=== PATIENT | female | born 1980 | race Caucasian/White ===

== ENCOUNTER 2020-03-08 12:36 | Outpatient (CLI) | payer OTHER, SELFPAY ==
--- NOTE | ~2020-03-08 | MMUS_ITS ---
EXAMINATION: MM diagnostic ashly BI w moiz, US breast RT limited HISTORY: Palpable right lump complaint by patient TECHNIQUE: ML, MLO and craniocaudal full field and right ML and cc spot 3-D tomosynthesis images of w ere performed and synthetic 2-D images were generated. CAD analysis was submitted and interpreted. Hi gh resolution upper outer quadrant right breast ultrasound was performed. COMPARISON: 11/28/2018, 12/20/2013 bilateral digital screening mammogram examinations FINDINGS: MAMMOGRAPHIC FINDINGS: No suspicious mass or architectural distortion, malignant calcification, skin thickening or retractio n or significant new or developing density is detected. A skin marker was placed over the area of clinical complaint at the upper outer quadrant of the right breast but there is underlying adipose tissue and no suspicious mass or architectural distortion. ULTRASOUND: There is no evidence of focal abnormal solid or cystic lesion or suspicious shadowing in the vicinity of the clinical complaint of right breast lump IMPRESSION: 1. No mammographic evidence of malignancy 2. Routine annual mammographic screening is recommended. BI-RADS Category 1: Negative Reviewed, dictated and finalized at location A. IMPRESSION: 1. No mammographic evidence of malignancy 2. Routine annual mammographic screening is recommended. BI-RADS Category 1: Negative
== END 2020-03-08 12:37 | disposition home or self-care (01) ==
LOC: ANHIMG 12:40
PROVIDERS: PCP Family Medicine; Visit Provider Nurse Practitioner
DX: N63.10 Unspecified lump in the right breast, unspecified quadrant (principal)
CPT/HCPCS: 76642; 77062; 77066; G0279

== ENCOUNTER → 2021-01-01 13:02 | Outpatient (CLI) | payer OTHER, SELFPAY ==
--- NOTE | ~2021-01-01 | US_ITS ---
EXAMINATION: US renal BI DATE: 01/01/2021 13:32 INDICATION: Stage III chronic kidney disease TECHNIQUE: Multiple ultrasound grayscale images of the kidneys were obtained. COMPARISON: 07/12/2009 FINDINGS: The right kidney measures 10.7 x 4.8 x 6.0 cm. The left kidney measures 10.9 x 4.7 x 5.4 cm. The kidn eys demonstrate normal echogenicity. There is no hydronephrosis in either kidney. No stones identifi ed. The bladder is normal. IMPRESSION: 1. Normal kidneys without hydronephrosis. Reviewed, dictated and finalized at location B.
== END ==
PROVIDERS: PCP Family Medicine; Visit Provider Family Medicine
DX: N18.30 Chronic kidney disease, stage 3 unspecified (principal)
CPT/HCPCS: 76775

== ENCOUNTER → 2021-02-25 02:22 | Outpatient (CLI) | payer OTHER, SELFPAY ==
[2021-02-25 18:14] LABS: SARS-CoV-2 RNA PCR Negative
== END ==
PROVIDERS: PCP Family Medicine; Visit Provider Internal Medicine Gastroenterology
DX: Z01.812 Encounter for preprocedural laboratory examination (principal); Z20.822 Contact with and (suspected) exposure to COVID-19
CPT/HCPCS: C9803; U0003; U0005

== ENCOUNTER 2021-02-28 00:03 | Day surgery (SDC) | payer OTHER, SELFPAY ==
[2021-02-19 15:48] VITALS: BMI 29.2
[2021-02-28 06:24] VITALS: BP 123/84; PULSE 94; RESP 18; TEMP 36.6; O2SAT 99
[2021-02-28] MEDS: LACTATED RINGERS 1,000 ML 150 ML IV CONT (06:26)
--- NOTE | 2021-02-28 07:21 | P.PNAN_ITS ---
Anes - Initial Pre Proc Eval Procedure: Operation Date: 02/28/21 07:30 Proposed Procedures p Screening Colonoscopy - Benny Johnson MD Date/Time: 02/28/21 07:21 Surgeon: Benny Johnson MD Pre Op Diagnosis: Neoplasm Screening, Family Hx Of Colon CA Patient Data Age: 40 Gender: F Height: 5 ft 3 in Weight: 77.4 kg Last Vital Signs Temp 97.8 F 02/28/21 06:24 Pulse 94 02/28/21 06:24 Resp 18 02/28/21 06:24 BP 123/84 02/28/21 06:24 Pulse Ox 99 02/28/21 06:24 Allergies Allergy/AdvReac Type Severity Reaction Status Date / Time No Known Allergies Allergy Verified 02/28/21 06:23 Home Medications Medication Instructions Recorded Confirmed Type atenolol 25 mg tablet 25 mg PO DAILY #90 tablet 02/01/21 02/28/21 Rx levonorgestrel-ethinyl estrad 1 tablet PO DAILY 02/19/21 02/28/21 History Patient hx anesthesia problems: none Family hx anesthesia problems: none [facility] Past Medical History Medical History (Updated 12/27/20 @ 12:55 by Ashley Greenberg MD) Chronic renal insufficiency, stage III (moderate) Migraine, unspecified, not intractable, without status migrainosus Mixed hyperlipidemia Obesity (BMI 30.0-34.9) Family History Family History Other Family history of malignant neoplasm Social History Social History Smoking status: Never smoker Second hand tobacco smoke exposure: No Alcohol intake: never Living arrangements: with family Gender identity (if verbalized by the patient): Female Spiritual care concerns: No Anes - Eval Final PreProcedure Day of Procedure 02/28/21 07:21 Patient weight: overweight Heart: regular rate and rhythm Lungs: clear to auscultation Airway: Mallampati scale class II Last oral intake: >/= 8 hours ASA classification: II Emergent: no Anesthetic plan: proceed Anesthesia type and monitoring: general GIVS and standard monitoring Informed Consent: The patient's anesthetic plan and its attendant risks and benefits were discussed with the patient/family/POA. Questions were solicited and answers provided to the satisfaction of the patient/family/POA.
--- NOTE | 2021-02-28 07:25 | PM.HPGS ---
History of Present Illness History of Present Illness Consent: Risks, benefits, and alternatives have been discussed and questions answered. Patient agrees to proceed with procedure. Chief complaint: Neoplasm Screening, Family Hx Of Colon CA Narrative: Bonnie Sweet is a 40 year old female here for first screening colonoscopy, father had colon cancer Review of Systems Constitutional: Constitutional: Denies headache(s) and Denies weakness Eyes: Eyes: Denies blurry vision ENT: Reports Normal hearing present, Denies headache(s) and Denies neck pain Cardiovascular: Cardiovascular: Denies chest pain and Denies dyspnea Respiratory: Respiratory: Denies dyspnea Gastrointestinal: Gastrointestinal: Reports no additional gastrointestinal complaints Genitourinary: Genitourinary: Denies dysuria Musculoskeletal: Musculoskeletal: Denies neck pain Integumentary/Breasts: Skin/Breast: Denies dry skin Neurologic: Reports Normal hearing present, Denies headache(s) and Denies weakness Psychiatric: Psychiatric: Denies anxiety Endocrine: Endocrine: Denies change in body appearance Hematologic/Lymphatic: Hematologic/Lymphatic: Denies easy bleeding Allergic/Immunologic: Allergic/Immunologic: Denies urticaria PMF Past Medical History Medical History (Updated 02/28/21 @ 07:26 by Benny Johnson MD) Chronic renal insufficiency, stage III (moderate) Family history of colon cancer in father Migraine, unspecified, not intractable, without status migrainosus Mixed hyperlipidemia Obesity (BMI 30.0-34.9) Family History Family History Other Family history of malignant neoplasm Social History Social History Smoking status: Never smoker Second hand tobacco smoke exposure: No Alcohol intake: never Living arrangements: with family Gender identity (if verbalized by the patient): Female Spiritual care concerns: No Meds Home Medications and Allergies Home Medications Medication Instructions Recorded Confirmed Type atenolol 25 mg tablet 25 mg PO DAILY #90 tablet 02/01/21 02/28/21 Rx levonorgestrel-ethinyl estrad 1 tablet PO DAILY 02/19/21 02/28/21 History Allergies Allergy/AdvReac Type Severity Reaction Status Date / Time No Known Allergies Allergy Verified 02/28/21 06:23 Vital Signs Vital Signs - 24 hr 02/28/21 06:24 Temperature 97.8 F Pulse Rate 94 Respiratory Rate 18 Blood Pressure 123/84 Pulse Oximetry 99 Exam Const: General: comfortable and no acute distress HENMT: General nose exam: Normal nares present Eyes: General: appearance normal, both eyes and all related structures Neck: Neck: no JVD Resp: Auscultation: clear to auscultation bilaterally Cardio: Rate: regular rate Rhythm: regular rhythm GI: Inspection: non-distended GI Palp: Yes Soft to palpation Skin: General skin exam: normal color Neuro: General: gait normal Speech: normal speech Extrem: General: normal to inspection Psych: Mental Status: mental status grossly normal Assessment and Plan Assessment and plan (1) Family history of colon cancer in father: Code(s): Z80.0 - Family history of malignant neoplasm of digestive organs Status: Acute Assessment and Plan: colonoscopy
[2021-02-28 07:48] VITALS: BP 98/61; PULSE 74; RESP 22; O2SAT 100
[2021-02-28 07:58] VITALS: BP 110/65; PULSE 68; RESP 24; O2SAT 98
[2021-02-28 08:08] VITALS: BP 120/76; PULSE 70; RESP 24; O2SAT 100
== END 2021-02-28 08:18 | disposition home or self-care (01) ==
PROVIDERS: PCP Family Medicine; Visit Provider Internal Medicine Gastroenterology
PROC: 0DJD8ZZ Inspection of Lower Intestinal Tract, Via Natural or Artificial Opening Endoscopic (ICD-10-PCS; CPT 45378; principal; 2021-02-28 07:30)
DX: Z12.11 Encounter for screening for malignant neoplasm of colon (principal); K64.8 Other hemorrhoids; Z80.0 Family history of malignant neoplasm of digestive organs; E78.2 Mixed hyperlipidemia; N18.30 Chronic kidney disease, stage 3 unspecified; E66.9 Obesity, unspecified; Z68.30 Body mass index [BMI] 30.0-30.9, adult
CPT/HCPCS: 45378; C9803; J2704; J7120; U0003; U0005